=== PATIENT | male | born 1985 | race Caucasian/White ===

== ENCOUNTER 2017-05-14 11:16 | Emergency (ER) | payer MEDICAID ==
[~2017-05-14] VITALS: Ht 185.4 cm; Wt 72.6 kg
[~2017-05-14 11:16] MED LIST: DENIES MEDS
[2017-05-14 11:20] VITALS: BP 128/69
== END 2017-05-14 11:54 | disposition home or self-care (01) ==
LOC: ER 11:19
DX: M54.5 Low back pain (principal); K50.90 Crohn's disease, unspecified, without complications
CPT/HCPCS: 99282; A4606; Z7610

== ENCOUNTER 2017-06-18 19:11 | Emergency (ER) | payer MEDICAID ==
[~2017-06-18] VITALS: Ht 185.4 cm; Wt 72.6 kg
[2017-06-18 19:11] VITALS: BP 108/69
== END 2017-06-18 20:33 | disposition home or self-care (01) ==
LOC: ER 19:13
DX: K21.9 Gastro-esophageal reflux disease without esophagitis (principal); K50.90 Crohn's disease, unspecified, without complications
CPT/HCPCS: 99282; A4606; Z7610

== ENCOUNTER 2021-01-12 17:34 | Emergency (ER) | payer MEDICAID ==
[~2021-01-12] VITALS: Ht 185.4 cm; Wt 93.0 kg
[2021-01-12 18:28] VITALS: BP 146/75
[2021-01-12 19:06] LABS: BASOPHILS # (AUTO) 0.1 K/uL (0.0-0.2); EOSINOPHILS % (AUTO) 4.8 % (0.0-6.0); HEMATOCRIT 43 % (39-51); HEMOGLOBIN 14.6 g/dL (13.5-17.5); LYMPHOCYTES # (AUTO) 1.3 K/uL (0.8-4.8); LYMPHOCYTES % (AUTO) 20.2 % (20.0-44.0); MEAN CORPUSCULAR HGB CONC 34 g/dl (31.0-36.0); MEAN CORPUSCULAR VOLUME 89 fL (80-96); MONOCYTES # (AUTO) 0.7 K/uL (0.1-1.30); MONOCYTES % (AUTO) 11.7 % (2.0-12.0); NEUTROPHILS % (AUTO) 62.3 % (43.0-81.0); PLATELET COUNT (AUTO) 238 K/uL (150-450); RED BLOOD CELL COUNT(AUTO) 4.88 MIL/uL (4.5-6.0); WHITE BLOOD COUNT (AUTO) 6.4 K/uL (4.3-11.0)
[2021-01-12 19:17] LABS: POTASSIUM 4.2 mmol/L (3.5-5.1)
== END 2021-01-12 20:52 | disposition home or self-care (01) ==
LOC: ER 17:35
DX: R20.0 Anesthesia of skin (principal); R51.9 Headache, unspecified; F31.9 Bipolar disorder, unspecified
CPT/HCPCS: 36415; 70450-TC; 80048-TC; 85025-TC